=== PATIENT | male | born 1955 | race Caucasian/White ===

== ENCOUNTER → 2016-12-13 | Outpatient (CLI) | payer MEDICARE ==
[~2016-12-13] MED LIST: AMLO5TAB2 PO; AMOX1TAB64 PO; ASPI-496 PO; ATOR40TA78 PO; BACL-19 PO; BENA20TA2 PO; CARB1TAB25 PO; CARB1TAB44 PO; CARV6.252 PO; CEPH-368 PO; CICL15CR3 TD; DAPA1TAB3 PO; GLIM4TAB2 PO; HYDR-3240 PO; HYDR-3241 PO; INSU100C SQ-INSULIN; INSU100I28 SC; KRIL1CAP5 PO; KRIL1CAP6 PO; LIRA0.6P SQ-INSULIN; METF10002 PO; PIOG30TA4 PO; PRAM0.25 PO; PRAM1TAB PO; TAMS0.4C2 PO; TIZA2CAP PO; TRAZ50TA18 PO; TRESIBA SQ; ZOLP10TA5 PO
[2016-12-13 14:12] LABS: ASPARTATE AMINO TRANSFERASE 17 U/L (15-37); BLOOD UREA NITROGEN 21 mg/dL (7-18)
== END | disposition home or self-care (01) ==
LOC: STAR 12:50
PROVIDERS: ATTEND Urology
DX: Z01.818 Encounter for other preprocedural examination (principal); N20.0 Calculus of kidney
CPT/HCPCS: 36415; 80053; 81003; 87086; 93005

== ENCOUNTER 2017-09-06 22:44 | Inpatient (IN) | payer MEDICARE ==
[~2017-09-06] VITALS: Ht 180.3 cm; Wt 125.6 kg
[2017-09-06] MEDS ORDERED: SODIUM CHLORIDE FLUSH 10ML SYR IVF ONE (23:00)
[2017-09-06] MEDS ORDERED: ONDANSETRON 2MG/ML, 2ML IVP ONE (23:00)
[2017-09-06] MEDS ORDERED: METF500T27 PO (23:00)
[2017-09-06] MEDS ORDERED: SODIUM CHLORIDE 0.9% 1,000ML IVBOLUS ONE (23:00)
[2017-09-06] MEDS ORDERED: ONDANSETRON 2MG/ML, 2ML ONE (23:02)
[2017-09-06 23:55] LABS: ALANINE AMINOTRANSFERASE 10 U/L (12-78); ANION GAP 7 mmol/L (5-15); BASOPHILS # (AUTO) 0.02 x10^3/uL (0-0.1); BASOPHILS % (AUTO) 0 % (0-1); CALCIUM 7.9 mg/dL (8.5-10.1); CHLORIDE 107 mmol/L (98-107); CREATININE 1.87 mg/dL (0.7-1.3); EOSINOPHILS # (AUTO) 0.41 x10^3/uL (0-0.4); EOSINOPHILS % (AUTO) 4 % (1-7); LYMPHOCYTES # (AUTO) 1.32 x10^3/uL (1-3.4); LYMPHOCYTES % (AUTO) 13 % (22-44); MD NO; MEAN CORPUSCULAR HEMOGLOBIN 28.2 pg (27.5-34.5); MEAN CORPUSCULAR VOLUME 85.4 fL (81-97); MEAN PLATELET VOLUME 9.6 fL (7.4-10.4); MONOCYTES # (AUTO) 0.91 x10^3/uL (0.2-0.8); MONOCYTES % (AUTO) 9 % (2-9); NEUTROPHILS # (AUTO) 7.69 x10^3/uL (1.8-6.8); NEUTROPHILS % (AUTO) 74 % (42-75); PLATELET COUNT 205 x10^3/uL (130-400)
[2017-09-07] LABS: ALKALINE PHOSPHATASE 59 U/L (45-117); BILIRUBIN,TOTAL 1.4 mg/dL (0.2-1.0); TOTAL PROTEIN 6.4 g/dL (6.4-8.2); TROPONIN I < 0.015 ng/mL (0.000-0.045)
[2017-09-07 00:07] LABS: RAPID INFLUENZA A Negative (Negative); RAPID INFLUENZA B Negative (Negative)
[2017-09-07] MEDS ORDERED: BISACODYL 10 MG SUPP PR PRN (02:30)
[2017-09-07] MEDS ORDERED: ACETAMINOPHEN 325 MG TABLET PO PRN (02:30)
[2017-09-07] MEDS ORDERED: DOCUSATE 100 MG CAPSULE PO PRN (02:30)
[2017-09-07 03:00] VITALS: BP 113/70
[2017-09-07 03:23] LABS: BASOPHILS # (AUTO) 0.03 x10^3/uL (0-0.1); BASOPHILS % (AUTO) 0 % (0-1); EOSINOPHILS # (AUTO) 0.45 x10^3/uL (0-0.4); EOSINOPHILS % (AUTO) 4 % (1-7); LYMPHOCYTES # (AUTO) 2.27 x10^3/uL (1-3.4); LYMPHOCYTES % (AUTO) 22 % (22-44); MD NO; MEAN CORPUSCULAR HEMOGLOBIN 28.4 pg (27.5-34.5); MEAN CORPUSCULAR HGB CONC 33.2 g/dL (33.2-36.2); MEAN CORPUSCULAR VOLUME 85.4 fL (81-97); MEAN PLATELET VOLUME 9.1 fL (7.4-10.4); MONOCYTES % (AUTO) 11 % (2-9); NEUTROPHILS % (AUTO) 63 % (42-75); PLATELET COUNT 196 x10^3/uL (130-400); RED BLOOD COUNT 3.93 x10^6/uL (4.38-5.82); RED CELL DISTRIBUTION WIDTH 17.1 % (9.4-14.8)
[2017-09-07] MEDS ORDERED: methylPREDNISolone SOD SUCC 125 MG/2 ML IVPush ONE (03:30)
[2017-09-07] MEDS: INSULIN ASPART 100 UNITS/ML, PEN SQ-INSULIN SCH ×5 (03:30→21:18)
[2017-09-07 03:33] LABS: ALBUMIN 3.1 g/dL (3.4-5.0); ANION GAP 7 mmol/L (5-15); CALCIUM 7.8 mg/dL (8.5-10.1); CHLORIDE 108 mmol/L (98-107)
[2017-09-07 03:36] LABS: ALANINE AMINOTRANSFERASE 10 U/L (12-78); ALKALINE PHOSPHATASE 57 U/L (45-117); BILIRUBIN,TOTAL 1.4 mg/dL (0.2-1.0); CHOL/HDL RATIO 2.4; CHOLESTEROL, TOTAL 95 mg/dL (140-239); CREATININE 1.72 mg/dL (0.7-1.3); HDL CHOLESTEROL (DIRECT) 39 mg/dL (40-60); TOTAL PROTEIN 6.5 g/dL (6.4-8.2); TRIGLYCERIDES 135 mg/dL (50-200); VLDL CHOLESTEROL 27 mg/dL (0-25)
[2017-09-07] MEDS: HEPARIN 5,000 UNITS/ML, 1ML SQ SCH ×3 (03:36→18:13)
[2017-09-07 03:37] LABS: HDL CHOL % 41 % (26-37); LDL CHOLESTEROL,CALCULATED 29 mg/dL (54-169); LDL/HDL RATIO 0.7 (0.5-3.0); TROPONIN I < 0.015 ng/mL (0.000-0.045)
[2017-09-07 03:41] LABS: HEMOGLOBIN A1C 8.3 % (4.2-6.3)
[2017-09-07 03:42] LABS: THYROID STIMULATING HORMONE 0.447 mIU/L (0.358-3.740)
[2017-09-07] MEDS: DOXYCYCLINE 100 MG in DEXTROSE 5% 250 ML IV SCH ×2 (03:59→16:51)
[2017-09-07 04:33] LABS: INTERNATIONAL NORMALIZED RATIO 1.01 (0.93-1.1); PROTHROMBIN TIME 10.4 Seconds (9.6-11.5)
[2017-09-07] MEDS: ASPIRIN 325 MG TABLET EC PO SCH (05:59)
[2017-09-07 06:14] LABS: MICROSCOPIC NOT IND
[2017-09-07 06:15] LABS: CULTURE INDICATED? NO
[2017-09-07] MEDS ORDERED: MAGNESIUM SULFATE PMX 2GM/50ML 50 ML IV ONE (07:30)
[2017-09-07 08:00] VITALS: BP 173/79
[2017-09-07] MEDS: SODIUM CHLORIDE 0.9% 1,000 ML IV SCH (08:43)
[2017-09-07] MEDS: Krill Oil 1,000 Mg PO SCH (09:00)
[2017-09-07] MEDS: PRAMIPEXOLE 0.5MG TABLET PO SCH ×3 (09:00→21:00)
[2017-09-07] MEDS: TRAZODONE 50MG TABLET PO SCH (09:24)
[2017-09-07] MEDS: BENAZEPRIL 20 MG TABLET PO SCH ×2 (09:24→21:19)
[2017-09-07] MEDS: CARVEDILOL 6.25 MG TABLET PO SCH (09:24)
[2017-09-07] MEDS: TAMSULOSIN 0.4 MG CAP.ER.24H PO SCH (09:24)
[2017-09-07] MEDS: AMLODIPINE 5 MG TABLET PO SCH (09:24)
[2017-09-07] MEDS: CARBIDOPA/LEVODOPA CR 50 MG/200 MG TABLET PO SCH ×2 (09:24→21:20)
[2017-09-07 11:05] LABS: TROPONIN I < 0.015 ng/mL (0.000-0.045)
[2017-09-07] MEDS: CARBIDOPA/LEVODOPA 25 MG/250 MG TABLET PO SCH ×3 (11:19→23:20)
[2017-09-07 15:58] VITALS: BP 99/61
[2017-09-07] MEDS ORDERED: ATORVASTATIN 40 MG TABLET PO SCH (21:00)
[2017-09-07 21:22] VITALS: BP 104/56
[2017-09-07 21:50] VITALS: BP 113/63
[2017-09-08 00:21] VITALS: BP 99/52
[2017-09-08] MEDS: DOXYCYCLINE 100 MG in DEXTROSE 5% 250 ML IV SCH ×3 (04:38→16:07)
[2017-09-08] MEDS: HEPARIN 5,000 UNITS/ML, 1ML SQ SCH ×2 (04:38→11:40)
[2017-09-08] MEDS: SODIUM CHLORIDE 0.9% 1,000 ML IV SCH ×3 (04:39→16:07)
[2017-09-08 04:45] LABS: BASOPHILS # (AUTO) 0.01 x10^3/uL (0-0.1); BASOPHILS % (AUTO) 0 % (0-1); EOSINOPHILS # (AUTO) 0.02 x10^3/uL (0-0.4); EOSINOPHILS % (AUTO) 0 % (1-7); LYMPHOCYTES # (AUTO) 2.35 x10^3/uL (1-3.4); LYMPHOCYTES % (AUTO) 21 % (22-44); MD NO; MEAN CORPUSCULAR HEMOGLOBIN 28.4 pg (27.5-34.5); MEAN CORPUSCULAR HGB CONC 33.4 g/dL (33.2-36.2); MEAN CORPUSCULAR VOLUME 85.2 fL (81-97); MEAN PLATELET VOLUME 9.7 fL (7.4-10.4); MONOCYTES # (AUTO) 1.37 x10^3/uL (0.2-0.8); MONOCYTES % (AUTO) 12 % (2-9); NEUTROPHILS % (AUTO) 67 % (42-75); PLATELET COUNT 203 x10^3/uL (130-400); RED BLOOD COUNT 3.92 x10^6/uL (4.38-5.82); RED CELL DISTRIBUTION WIDTH 16.5 % (9.4-14.8)
[2017-09-08 04:57] LABS: ANION GAP 6 mmol/L (5-15); CALCIUM 8.4 mg/dL (8.5-10.1); CHLORIDE 106 mmol/L (98-107); CREATININE 1.27 mg/dL (0.7-1.3)
[2017-09-08] MEDS: ASPIRIN 325 MG TABLET EC PO SCH (05:28)
[2017-09-08 06:47] VITALS: BP 123/73
[2017-09-08] MEDS: INSULIN ASPART 100 UNITS/ML, PEN SQ-INSULIN SCH ×3 (07:00→16:27)
[2017-09-08] MEDS: TRAZODONE 50MG TABLET PO SCH (09:00)
[2017-09-08] MEDS: BENAZEPRIL 20 MG TABLET PO SCH (09:00)
[2017-09-08] MEDS: PRAMIPEXOLE 0.5MG TABLET PO SCH ×2 (09:00→16:00)
[2017-09-08] MEDS: CARBIDOPA/LEVODOPA 25 MG/250 MG TABLET PO SCH ×2 (09:00→16:07)
[2017-09-08] MEDS: TAMSULOSIN 0.4 MG CAP.ER.24H PO SCH (09:00)
[2017-09-08] MEDS: AMLODIPINE 5 MG TABLET PO SCH (09:00)
[2017-09-08] MEDS: Krill Oil 1,000 Mg PO SCH (09:00)
[2017-09-08] MEDS: CARVEDILOL 6.25 MG TABLET PO SCH (09:01)
[2017-09-08] MEDS: CARBIDOPA/LEVODOPA CR 50 MG/200 MG TABLET PO SCH (09:01)
[2017-09-08] MEDS ORDERED: DOXY100T PO (11:53)
[2017-09-08] MEDS ORDERED: KETOROLAC 30 MG/1 ML IVPush PRN (13:30)
[2017-09-08 14:12] VITALS: BP 105/66
[2017-09-08 15:39] LABS: MICROSCOPIC NOT IND
[2017-09-08 16:04] LABS: CULTURE INDICATED? NO
== END 2017-09-08 17:49 | disposition home or self-care (01) | DRG 871 ==
LOC: ED 23:59 → EDIP 09-07 00:41 → 4EST 09-07 02:43
PROVIDERS: ADMIT Surgery; ATTEND Surgery
DX: A41.9 Sepsis, unspecified organism (principal); J18.9 Pneumonia, unspecified organism; J96.01 Acute respiratory failure with hypoxia; N17.0 Acute kidney failure with tubular necrosis; I11.0 Hypertensive heart disease with heart failure; I50.32 Chronic diastolic (congestive) heart failure; G20 Parkinson's disease; J44.1 Chronic obstructive pulmonary disease with (acute) exacerbation; J44.0 Chronic obstructive pulmonary disease with (acute) lower respiratory infection; E11.65 Type 2 diabetes mellitus with hyperglycemia; N40.0 Benign prostatic hyperplasia without lower urinary tract symptoms; G47.33 Obstructive sleep apnea (adult) (pediatric); B34.9 Viral infection, unspecified; E78.5 Hyperlipidemia, unspecified; E83.42 Hypomagnesemia; E86.0 Dehydration; G89.29 Other chronic pain; K59.00 Constipation, unspecified; N20.0 Calculus of kidney; Z79.4 Long term (current) use of insulin; Z87.442 Personal history of urinary calculi; Z79.82 Long term (current) use of aspirin; Z79.899 Other long term (current) drug therapy
CPT/HCPCS: 36415; 36600; 71010; 74018; 76770; 80048; 80053; 80061; 81003; 82803; 82962; 83036; 83605; 83735; 83880; 84100; 84443; 84484; 85025; 85610; 87040; 87400; 93005; 93306; 96374; J1644; J1815; J1885; J2405; J7060; J2930; J3475; J7030

== ENCOUNTER → 2018-08-24 | Outpatient (CLI) | payer MEDICARE ==
[~2018-08-24] MED LIST changes: +AMLO-150 PO; -AMLO5TAB2 PO; -BENA20TA2 PO; +BENA20TA4 PO; +DOXY100T PO; +METF500T27 PO; -TRAZ50TA18 PO; +TRAZ50TA66 PO
== END | disposition home or self-care (01) ==
LOC: CVU 12:06
PROVIDERS: ATTEND Internal Medicine Cardiovascular Disease
DX: I11.9 Hypertensive heart disease without heart failure (principal); E78.5 Hyperlipidemia, unspecified; E11.9 Type 2 diabetes mellitus without complications; I48.91 Unspecified atrial fibrillation; Z87.891 Personal history of nicotine dependence
CPT/HCPCS: 0399T; 93306

== ENCOUNTER 2018-09-25 09:18 | Day surgery (SDC) | payer MEDICARE ==
[~2018-09-25] VITALS: Ht 185.4 cm; Wt 114.0 kg
[2018-09-25 09:59] VITALS: BP 125/61
[2018-09-25] MEDS ORDERED: SODIUM CHLORIDE 0.9% 1,000 ML IV ONE (10:00)
[2018-09-25] MEDS ORDERED: PROPOFOL 10 MG/ML, 20ML ONE (12:14)
== END 2018-09-25 13:45 | disposition home or self-care (01) ==
LOC: CACL 09:18
PROVIDERS: ATTEND Internal Medicine Cardiovascular Disease
DX: I34.0 Nonrheumatic mitral (valve) insufficiency (principal); I36.1 Nonrheumatic tricuspid (valve) insufficiency; I11.9 Hypertensive heart disease without heart failure; E78.5 Hyperlipidemia, unspecified; G47.33 Obstructive sleep apnea (adult) (pediatric); I48.91 Unspecified atrial fibrillation; N40.0 Benign prostatic hyperplasia without lower urinary tract symptoms
CPT/HCPCS: 93312; 93325; J2704

== ENCOUNTER → 2019-11-02 | Outpatient (CLI) | payer MEDICARE, OTHER ==
[~2019-11-02] MED LIST changes: +ALFU10TA PO; +ASCO-96 PO; -BENA20TA4 PO; +BENA20TA54 PO; +CARV6.2512 PO; +CHOL10003 PO; +CYCL-259 PO; +GABA800T5 PO; -GLIM4TAB2 PO; +GLIM4TAB8 PO; +HYDR-3245 PO; +INSU100V8 SQ; +KRIL1CAP31 PO; +LIRA0.6P SC; +MAGN400T9 PO; +METF1000 PO; +OMEP40CA42 PO; -PIOG30TA4 PO; +PIOG30TA68 PO; +TORS20TA2 PO; +TRIA15CR61 TD; +iron OTC PO
[2019-11-02 09:52] LABS: INTERNATIONAL NORMALIZED RATIO 0.96 (0.93-1.1); PROTHROMBIN TIME 10.2 Seconds (9.6-11.5)
[2019-11-02 09:54] LABS: BASOPHILS # (AUTO) 0.06 x10^3/uL (0-0.1); BASOPHILS % (AUTO) 1 % (0-1); EOSINOPHILS # (AUTO) 0.48 x10^3/uL (0-0.4); EOSINOPHILS % (AUTO) 5 % (1-7); LYMPHOCYTES # (AUTO) 1.96 x10^3/uL (1-3.4); LYMPHOCYTES % (AUTO) 19 % (22-44); MD NO; MEAN CORPUSCULAR HEMOGLOBIN 25.6 pg (27.5-34.5); MEAN CORPUSCULAR HGB CONC 32.4 g/dL (33.2-36.2); MEAN CORPUSCULAR VOLUME 78.9 fL (81-97); MEAN PLATELET VOLUME 9.6 fL (7.4-10.4); MONOCYTES # (AUTO) 0.75 x10^3/uL (0.2-0.8); MONOCYTES % (AUTO) 7 % (2-9); NEUTROPHILS # (AUTO) 6.91 x10^3/uL (1.8-6.8); NEUTROPHILS % (AUTO) 68 % (42-75); PLATELET COUNT 249 x10^3/uL (130-400); RED BLOOD COUNT 4.67 x10^6/uL (4.38-5.82)
[2019-11-02 09:56] LABS: ALANINE AMINOTRANSFERASE 12 U/L (12-78); ALBUMIN 3.3 g/dL (3.4-5.0); ANION GAP 8 mmol/L (5-15); CALCIUM 8.2 mg/dL (8.5-10.1); CHLORIDE 103 mmol/L (98-107); CREATININE 1.14 mg/dL (0.7-1.3)
[2019-11-02 09:58] LABS: ALKALINE PHOSPHATASE 96 U/L (45-117); BILIRUBIN,TOTAL 0.9 mg/dL (0.2-1.0); TOTAL PROTEIN 7.4 g/dL (6.4-8.2)
== END | disposition home or self-care (01) ==
LOC: STAR 08:16
PROVIDERS: ATTEND Neurological Surgery
DX: Z01.818 Encounter for other preprocedural examination (principal); M48.061 Spinal stenosis, lumbar region without neurogenic claudication
CPT/HCPCS: 36415; 71046; 80053; 85025; 85610; 85730; 93005

== ENCOUNTER 2019-11-10 11:41 | Inpatient (IN) | payer MEDICARE ==
[~2019-11-10] VITALS: Ht 182.9 cm; Wt 112.3 kg
[2019-11-10 14:42] VITALS: BP 124/76
[2019-11-10] MEDS ORDERED: LACTATED RINGERS 1,000 ML IV SCH (14:52)
[2019-11-10] MEDS ORDERED: DIAZEPAM 5 MG TABLET PO ONE (15:00)
[2019-11-10] MEDS ORDERED: ACETAMINOPHEN 500 MG TABLET PO ONE (15:00)
[2019-11-10] MEDS ORDERED: SCOPOLAMINE 1MG PATCH TD SCH (15:00)
[2019-11-10] MEDS ORDERED: BUPIVACAINE/PF-EPI 0.5% 1:200K ONE (17:02)
[2019-11-10] MEDS ORDERED: MIDAZOLAM 1 MG/ML, 2ML ONE (17:02)
[2019-11-10] MEDS ORDERED: ONDANSETRON 2MG/ML, 2ML ONE ×2 (17:02→19:29)
[2019-11-10] MEDS ORDERED: GLYCOPYRROLATE 0.2MG/1ML, 5ML ONE ×2 (17:02→19:29)
[2019-11-10] MEDS ORDERED: ROCURONIUM 10MG/ML,5ML ONE ×2 (17:02→19:29)
[2019-11-10] MEDS ORDERED: BACITRACIN 50,000 UNIT ONE (17:02)
[2019-11-10] MEDS ORDERED: PROPOFOL 10 MG/ML, 20ML ONE ×2 (17:02→19:29)
[2019-11-10] MEDS ORDERED: SUCCINYLCHOLINE 20 MG/ML, 10ML ONE ×2 (17:02→19:29)
[2019-11-10] MEDS ORDERED: NEOSTIGMINE 1 MG/ML, 10ML ONE ×2 (17:02→19:29)
[2019-11-10] MEDS ORDERED: DEXAMETHASONE 4 MG/ML, 1ML ONE ×2 (17:02→19:29)
[2019-11-10] MEDS ORDERED: CEFAZOLIN 1,000 MG ONE ×2 (17:02→19:29)
[2019-11-10] MEDS ORDERED: THROMBIN 20,000 UNIT VIAL TP ONE (17:02)
[2019-11-10] MEDS ORDERED: BACITRACIN OINT 500U/GM, 15 GM ONE (17:02)
[2019-11-10] MEDS ORDERED: PROPOFOL 100 ML ONE (17:02)
[2019-11-10] MEDS ORDERED: FENTANYL PF 250 MCG/5ML ONE ×2 (17:28→19:15)
[2019-11-10] MEDS ORDERED: CALCIUM CHLORIDE 10%, 10ML SYR ONE (17:52)
[2019-11-10] MEDS ORDERED: THROMBIN 5,000 UNIT VIAL TP ONE (17:52)
[2019-11-10] MEDS ORDERED: LABETALOL 5MG/ML, 20ML IV PRN (18:30)
[2019-11-10] MEDS ORDERED: ONDANSETRON 2MG/ML, 2ML IV PRN (18:30)
[2019-11-10] MEDS ORDERED: METOPROLOL 1 MG/ML, 5ML IV PRN (18:30)
[2019-11-10] MEDS ORDERED: OXYcodone 5 MG/5 ML ORAL.SOL UDC PO PRN (18:30)
[2019-11-10] MEDS ORDERED: ONDANSETRON ODT 8 MG PO PRN (18:30)
[2019-11-10] MEDS ORDERED: PROMETHAZINE 25 MG/ML, 1ML IV PRN (18:30)
[2019-11-10] MEDS ORDERED: PROMETHAZINE 25 MG SUPP PR PRN (18:30)
[2019-11-10] MEDS ORDERED: LORazepam 2 MG/ML, 1ML IVPush PRN (18:30)
[2019-11-10] MEDS ORDERED: hydrALAzine 20 MG/ML, 1ML IV PRN (18:30)
[2019-11-10] MEDS ORDERED: DEXTROSE 50%, 50ML SYRINGE IVPush ONE (19:08)
[2019-11-10] MEDS ORDERED: VANCOMYCIN 1,000 MG ONE (19:30)
[2019-11-10] MEDS ORDERED: FENTANYL PF 100 MCG/2ML ONE ×2 (22:18→22:35)
[2019-11-10] MEDS ORDERED: OXYcodone 5 MG/5 ML ORAL.SOL UDC ONE (22:18)
[2019-11-10] MEDS ORDERED: HYDROmorphone 1 MG/ML, 1ML INJ ONE (22:18)
[2019-11-10] MEDS: FENTANYL PF 100 MCG/2ML IV PRN ×4 (22:21→22:57)
[2019-11-10] MEDS: HYDROmorphone 2 MG/ML, 1ML IVPush PRN ×6 (22:26→23:15)
[2019-11-10] MEDS ORDERED: HYDROmorphone 2 MG/ML, 1ML ONE (22:36)
[2019-11-10] MEDS ORDERED: DIAZEPAM 5 MG/ML, 2ML ONE (23:05)
[2019-11-10] MEDS: DIAZEPAM 5 MG/ML, 2ML IVPush PRN ×2 (23:10→23:21)
[2019-11-11] MEDS ORDERED: MAGNESIUM HYDROXIDE 8%, 30ML UDC PO PRN (00:30)
[2019-11-11] MEDS ORDERED: DIPHENHYDRAMINE 25 MG CAPSULE PO PRN (00:30)
[2019-11-11] MEDS ORDERED: ONDANSETRON 2MG/ML, 2ML IV PRN (00:30)
[2019-11-11] MEDS ORDERED: TRAZODONE 100MG TABLET PO PRN (00:30)
[2019-11-11] MEDS ORDERED: DIPHENHYDRAMINE 50 MG/ML, 1ML IM PRN (00:30)
[2019-11-11] MEDS ORDERED: PHARMACY MAY ADJ FOR RENAL FX MC PRN (00:30)
[2019-11-11] MEDS ORDERED: HYDROcodone/APAP 5/325 TABLET PO PRN (00:30)
[2019-11-11] MEDS ORDERED: CEFAZOLIN PMX 1GM/50ML 50 ML IVPB SCH (00:30)
[2019-11-11] MEDS ORDERED: BISACODYL 10 MG SUPP PR PRN (00:30)
[2019-11-11] MEDS ORDERED: HYDROmorphone 2 MG/ML, 1ML IVPush PRN (00:30)
[2019-11-11] MEDS ORDERED: PROMETHAZINE 25 MG/ML, 1ML IM PRN (00:30)
[2019-11-11] MEDS: GABAPENTIN 400 MG CAPSULE PO SCH ×4 (00:53→20:17)
[2019-11-11] MEDS: CARBIDOPA/LEVODOPA CR 50 MG/200 MG TABLET PO SCH ×3 (00:53→20:17)
[2019-11-11] MEDS: CARVEDILOL 12.5 MG TABLET PO SCH ×3 (00:54→18:51)
[2019-11-11] MEDS: NS + 20MEQ KCL 1,000 ML IV SCH ×2 (00:54→16:12)
[2019-11-11] MEDS: PRAMIPEXOLE 0.5MG TABLET PO SCH ×4 (01:06→20:17)
[2019-11-11] MEDS: CARBIDOPA/LEVODOPA 25 MG/250 MG TABLET PO SCH ×4 (01:36→20:17)
[2019-11-11] MEDS: CEFAZOLIN PMX 1GM/50ML 50 ML IVPB SCH ×2 (02:42→11:28)
[2019-11-11] MEDS: HYDROcodone/APAP 10/325 MG TABLET PO PRN ×4 (02:43→20:17)
[2019-11-11 03:47] VITALS: BP 171/90
[2019-11-11] MEDS: CYCLOBENZAPRINE 10 MG TABLET PO PRN ×2 (04:04→12:40)
[2019-11-11] MEDS: OMEPRAZOLE 20 MG CAPSULE.DR PO SCH (06:29)
[2019-11-11 06:30] VITALS: BP 158/90
[2019-11-11] MEDS ORDERED: INSULIN REGULAR 100 UNITS/ML, 3ML VIAL SQ-INSULIN SCH (07:00)
[2019-11-11 07:53] VITALS: BP 112/66
[2019-11-11] MEDS: SENNA/DOCUSATE TABLET PO SCH (08:23)
[2019-11-11] MEDS: UROXATRAL 10 MG HOMEMEDPO SCH (09:00)
[2019-11-11] MEDS: INSULIN LISPRO 100 UNITS/ML, PEN SQ-INSULIN SCH ×3 (11:47→20:18)
--- NOTE | 2019-11-11 12:00 | NUR ---
OT Rec: [facility] Addendum: 11/11/19 at 1201 by JUN ASHLEY OT Amended: Links added.
[2019-11-11] MEDS: MAGNESIUM HYDROXIDE 8%, 30ML UDC PO SCH (12:40)
[2019-11-11 14:53] VITALS: BP 102/63
[2019-11-11 18:52] VITALS: BP 124/72
[2019-11-11] MEDS: ATORVASTATIN 40 MG TABLET PO SCH (20:17)
[2019-11-11] MEDS: VICTOZA SQ SCH (21:00)
[2019-11-11] MEDS ORDERED: INSULIN GLARGINE 100 UNITS/ML, PEN SQ-INSULIN SCH ×2 (21:00)
[2019-11-11 21:23] VITALS: BP 151/82
[2019-11-12] VITALS: BP 143/78
[2019-11-12] MEDS ORDERED: ACETAMINOPHEN 325 MG TABLET ONE (00:19)
[2019-11-12] MEDS: ACETAMINOPHEN 325 MG TABLET PO PRN ×2 (00:21→05:20)
[2019-11-12 00:57] LABS: MEAN CORPUSCULAR HEMOGLOBIN 25.7 pg (27.5-34.5); MEAN CORPUSCULAR HGB CONC 32.4 g/dL (33.2-36.2); MEAN CORPUSCULAR VOLUME 79.1 fL (81-97); MEAN PLATELET VOLUME 9.7 fL (7.4-10.4); PLATELET COUNT 228 x10^3/uL (130-400); RED BLOOD COUNT 4.11 x10^6/uL (4.38-5.82); RED CELL DISTRIBUTION WIDTH 18.5 % (9.4-14.8)
[2019-11-12 01:09] LABS: ANION GAP 6 mmol/L (5-15); CALCIUM 8.2 mg/dL (8.5-10.1); CHLORIDE 104 mmol/L (98-107); CREATININE 1.09 mg/dL (0.7-1.3)
[2019-11-12 01:15] LABS: BASOPHILS # (AUTO) 0.05 x10^3/uL (0-0.1); BASOPHILS % (AUTO) 0 % (0-1); EOSINOPHILS # (AUTO) 0.14 x10^3/uL (0-0.4); EOSINOPHILS % (AUTO) 1 % (1-7); LYMPHOCYTES # (AUTO) 1.11 x10^3/uL (1-3.4); LYMPHOCYTES % (AUTO) 10 % (22-44); MD SCAN; MONOCYTES # (AUTO) 1.21 x10^3/uL (0.2-0.8); MONOCYTES % (AUTO) 11 % (2-9); NEUTROPHILS # (AUTO) 8.96 x10^3/uL (1.8-6.8); NEUTROPHILS % (AUTO) 78 % (42-75)
[2019-11-12 02:56] VITALS: BP 133/67
[2019-11-12] MEDS: CYCLOBENZAPRINE 10 MG TABLET PO PRN (05:19)
[2019-11-12] MEDS: CARVEDILOL 12.5 MG TABLET PO SCH ×2 (05:19→18:39)
[2019-11-12] MEDS: OMEPRAZOLE 20 MG CAPSULE.DR PO SCH (05:20)
[2019-11-12 05:45] LABS: ANION GAP 7 mmol/L (5-15); CALCIUM 8.4 mg/dL (8.5-10.1); CHLORIDE 104 mmol/L (98-107); CREATININE 1.15 mg/dL (0.7-1.3)
[2019-11-12 06:39] LABS: MICROSCOPIC NOT IND
[2019-11-12 06:41] LABS: CULTURE INDICATED? NO
[2019-11-12 07:21] VITALS: BP 106/58
[2019-11-12 07:44] LABS: BASOPHILS # (AUTO) 0.05 x10^3/uL (0-0.1); BASOPHILS % (AUTO) 1 % (0-1); EOSINOPHILS # (AUTO) 0.13 x10^3/uL (0-0.4); EOSINOPHILS % (AUTO) 1 % (1-7); LYMPHOCYTES # (AUTO) 1.74 x10^3/uL (1-3.4); LYMPHOCYTES % (AUTO) 15 % (22-44); MD NO; MEAN CORPUSCULAR HEMOGLOBIN 25.5 pg (27.5-34.5); MEAN CORPUSCULAR VOLUME 79.6 fL (81-97); MEAN PLATELET VOLUME 10.5 fL (7.4-10.4); MONOCYTES # (AUTO) 1.31 x10^3/uL (0.2-0.8); MONOCYTES % (AUTO) 11 % (2-9); NEUTROPHILS # (AUTO) 8.75 x10^3/uL (1.8-6.8); NEUTROPHILS % (AUTO) 73 % (42-75); PLATELET COUNT 235 x10^3/uL (130-400); RED BLOOD COUNT 4.24 x10^6/uL (4.38-5.82); RED CELL DISTRIBUTION WIDTH 19.1 % (9.4-14.8)
[2019-11-12] MEDS: INSULIN LISPRO 100 UNITS/ML, PEN SQ-INSULIN SCH ×4 (08:10→21:08)
[2019-11-12] MEDS: UROXATRAL 10 MG HOMEMEDPO SCH (09:00)
[2019-11-12] MEDS: NS + 20MEQ KCL 1,000 ML IV SCH (09:00)
[2019-11-12] MEDS: MAGNESIUM HYDROXIDE 8%, 30ML UDC PO SCH (09:00)
[2019-11-12] MEDS: GABAPENTIN 400 MG CAPSULE PO SCH ×3 (09:01→21:02)
[2019-11-12] MEDS: CARBIDOPA/LEVODOPA 25 MG/250 MG TABLET PO SCH ×3 (09:01→21:02)
[2019-11-12] MEDS: CARBIDOPA/LEVODOPA CR 50 MG/200 MG TABLET PO SCH ×2 (09:01→21:02)
[2019-11-12] MEDS: SENNA/DOCUSATE TABLET PO SCH (09:01)
[2019-11-12] MEDS: PRAMIPEXOLE 0.5MG TABLET PO SCH ×3 (09:01→21:02)
[2019-11-12] MEDS ORDERED: INSULIN NPH HUMAN 100 UNIT/ML, 3ML VIAL SQ-INSULIN ONE (10:00)
[2019-11-12] MEDS: HYDROcodone/APAP 5/325 TABLET PO PRN (11:10)
[2019-11-12] MEDS ORDERED: CYCLOBENZAPRINE 10 MG TABLET PO PRN ×2 (11:30)
[2019-11-12 12:41] VITALS: BP 120/54
[2019-11-12] MEDS: POLYETHYLENE GLYCOL 17 GM PACKET PO SCH (16:29)
[2019-11-12 18:39] VITALS: BP 130/71
[2019-11-12 19:50] VITALS: BP 147/74
[2019-11-12] MEDS ORDERED: INSULIN GLARGINE 100 UNITS/ML, PEN SQ-INSULIN SCH (21:00)
[2019-11-12] MEDS: VICTOZA SQ SCH (21:00)
[2019-11-12] MEDS: ATORVASTATIN 40 MG TABLET PO SCH (21:02)
[2019-11-13 02:15] VITALS: BP 145/73
[2019-11-13] MEDS: CARVEDILOL 12.5 MG TABLET PO SCH (05:49)
[2019-11-13] MEDS: OMEPRAZOLE 20 MG CAPSULE.DR PO SCH (05:49)
[2019-11-13] MEDS: HYDROcodone/APAP 5/325 TABLET PO PRN ×2 (05:50→15:48)
[2019-11-13 06:09] LABS: MEAN CORPUSCULAR HEMOGLOBIN 25.4 pg (27.5-34.5); MEAN CORPUSCULAR HGB CONC 32.1 g/dL (33.2-36.2); MEAN CORPUSCULAR VOLUME 79.2 fL (81-97); MEAN PLATELET VOLUME 10.3 fL (7.4-10.4); PLATELET COUNT 188 x10^3/uL (130-400); RED CELL DISTRIBUTION WIDTH 19.2 % (9.4-14.8)
[2019-11-13 06:13] LABS: CHLORIDE 105 mmol/L (98-107)
[2019-11-13] MEDS: INSULIN LISPRO 100 UNITS/ML, PEN SQ-INSULIN SCH ×3 (06:13→15:48)
[2019-11-13 06:17] LABS: ANION GAP 7 mmol/L (5-15); CALCIUM 8.7 mg/dL (8.5-10.1); CREATININE 0.78 mg/dL (0.7-1.3)
[2019-11-13 06:38] LABS: BASOPHILS # (AUTO) 0.06 x10^3/uL (0-0.1); BASOPHILS % (AUTO) 1 % (0-1); EOSINOPHILS # (AUTO) 0.42 x10^3/uL (0-0.4); EOSINOPHILS % (AUTO) 4 % (1-7); LYMPHOCYTES # (AUTO) 1.77 x10^3/uL (1-3.4); LYMPHOCYTES % (AUTO) 16 % (22-44); MD SCAN; MONOCYTES # (AUTO) 1.51 x10^3/uL (0.2-0.8); MONOCYTES % (AUTO) 14 % (2-9); NEUTROPHILS # (AUTO) 7.05 x10^3/uL (1.8-6.8); NEUTROPHILS % (AUTO) 65 % (42-75)
[2019-11-13 07:43] VITALS: BP 146/76
[2019-11-13] MEDS: MAGNESIUM HYDROXIDE 8%, 30ML UDC PO SCH (07:54)
[2019-11-13] MEDS: GABAPENTIN 400 MG CAPSULE PO SCH ×2 (07:54→15:48)
[2019-11-13] MEDS: SENNA/DOCUSATE TABLET PO SCH (07:55)
[2019-11-13] MEDS: CARBIDOPA/LEVODOPA CR 50 MG/200 MG TABLET PO SCH (07:55)
[2019-11-13] MEDS: CARBIDOPA/LEVODOPA 25 MG/250 MG TABLET PO SCH ×2 (07:55→15:47)
[2019-11-13] MEDS: PRAMIPEXOLE 0.5MG TABLET PO SCH ×2 (07:55→15:48)
[2019-11-13] MEDS: POLYETHYLENE GLYCOL 17 GM PACKET PO SCH (07:57)
[2019-11-13] MEDS: UROXATRAL 10 MG HOMEMEDPO SCH (07:57)
[2019-11-13 13:36] VITALS: BP 130/72
[2019-11-13] MEDS ORDERED: ENOXAPARIN 30 MG/0.3 ML SQ SCH ×2 (16:00→21:00)
== END 2019-11-13 16:17 | DRG 460 ==
LOC: ORIP 14:10 → 4NE 23:57
PROVIDERS: ADMIT Neurological Surgery; ATTEND Neurological Surgery
PROC: 4A1104G Monitoring of Peripheral Nervous Electrical Activity, Intraoperative, Open Approach (ICD-10-PCS; 2019-11-10)
PROC: 0SG3071 Fusion of Lumbosacral Joint with Autologous Tissue Substitute, Posterior Approach, Posterior Column, Open Approach (ICD-10-PCS; 2019-11-10)
PROC: 0SP004Z Removal of Internal Fixation Device from Lumbar Vertebral Joint, Open Approach (ICD-10-PCS; 2019-11-10)
PROC: 0SG0071 Fusion of Lumbar Vertebral Joint with Autologous Tissue Substitute, Posterior Approach, Posterior Column, Open Approach (ICD-10-PCS; principal; 2019-11-10 16:30)
DX: M96.0 Pseudarthrosis after fusion or arthrodesis (principal); M54.16 Radiculopathy, lumbar region; Y83.8 Other surgical procedures as the cause of abnormal reaction of the patient, or of later complication, without mention of misadventure at the time of the procedure; D72.829 Elevated white blood cell count, unspecified; E11.22 Type 2 diabetes mellitus with diabetic chronic kidney disease; E78.5 Hyperlipidemia, unspecified; E88.2 Lipomatosis, not elsewhere classified; G20 Parkinson's disease; G25.81 Restless legs syndrome; I12.9 Hypertensive chronic kidney disease with stage 1 through stage 4 chronic kidney disease, or unspecified chronic kidney disease; M46.90 Unspecified inflammatory spondylopathy, site unspecified; M48.061 Spinal stenosis, lumbar region without neurogenic claudication; N18.2 Chronic kidney disease, stage 2 (mild); R32 Unspecified urinary incontinence; Z79.4 Long term (current) use of insulin; Z82.49 Family history of ischemic heart disease and other diseases of the circulatory system; Z87.891 Personal history of nicotine dependence; E11.65 Type 2 diabetes mellitus with hyperglycemia
CPT/HCPCS: 36415; 71045; 72100; 80048; 81003; 82962; 83036; 85025; 95938; 95941; C1713; G0378; J0690; J1100; J1170; J1650; J1815; J2250; J2405; J2704; J2710; J3010; J3360; J3370; J3480; C1762; C1763; C9352; J0330; J7120

== ENCOUNTER → 2020-03-02 | Outpatient (CLI) | payer MEDICARE | END | disposition home or self-care (01) | LOC: RAD 08:45 | PROVIDERS: ATTEND Internal Medicine Geriatric Medicine | DX: T81.40XD Infection following a procedure, unspecified, subsequent encounter (principal); B99.8 Other infectious disease; M46.26 Osteomyelitis of vertebra, lumbar region; Y83.8 Other surgical procedures as the cause of abnormal reaction of the patient, or of later complication, without mention of misadventure at the time of the procedure | CPT/HCPCS: 36573; C1751 ==